=== PATIENT | male | born 1960 | race Caucasian/White ===

== ENCOUNTER 2016-11-20 13:40 | Emergency (ER) | payer BC ==
[2016-11-20 13:58] VITALS: BP 158/82; RESP 18; TEMP 98.6
[2016-11-20] MEDS ORDERED: IPRATROPIUM 0.5 MG/2.5 ML NEBU INHALATION STA (14:27)
[2016-11-20] MEDS ORDERED: ALBUTEROL NEBULIZED 2.5 MG/3 ML INHALATION STA (14:27)
[2016-11-20] MEDS ORDERED: SODIUM CHLORIDE 0.9% 1,000 ML IV STA (14:27)
[2016-11-20] MEDS ORDERED: methylPREDNISolone SOD SUCCI 125 MG/2 ML VIAL IV STA (14:27)
--- NOTE | 2016-11-20 14:29 | ED ---
General Adult HPI - General Chief complaint: Upper Respiratory Infection Stated complaint: Coughing blood Time Seen by Provider: 11/20/16 14:10 Source: patient, RN notes reviewed, old records reviewed Mode of arrival: ambulatory Limitations: no limitations - History of Present Illness Initial comments: This is a 56-year-old male the ER for evaluation. This patient presents today for evaluation of cough and congestion. Patient does sore from asthma, S2 to 3 days of increased cough with mucus production. No fevers. No travel history or chest pain. Patient states that he has been having blood in his mucus that started this morning about [id number]. 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 - Related Data Home Medications Medication Instructions Recorded Confirmed Hydroxychloroquine Sulfate 200 mg PO BID 12/11/15 11/20/16 [Plaquenil] Warfarin [Coumadin] 5 mg PO SUMOTUWESA 12/11/15 11/20/16 Bisoprolol-Hctz 5-6.25 mg [Ziac 1 tab PO DAILY 11/20/16 11/20/16 5-6.25] Enalapril [Vasotec] 10 mg PO BID 11/20/16 11/20/16 Warfarin [Coumadin] 2.5 mg PO THFR 11/20/16 11/20/16 buPROPion XL [Wellbutrin Xl] 450 mg PO DAILY@1200 11/20/16 11/20/16 traZODone HCL [Desyrel] 100 mg PO HS 11/20/16 11/20/16 Allergies Allergy/AdvReac Type Severity Reaction Status Date / Time No Known Allergies Allergy Verified 11/20/16 15:29 Review of Systems ROS Statement: Those systems with pertinent positive or pertinent negative responses have been documented in the HPI. ROS Other: All systems not noted in ROS Statement are negative. Past Medical History Past Medical History: Asthma, Hypertension Additional Past Medical History / Comment(s): lupus History of Any Multi-Drug Resistant Organisms: None Reported Additional Past Surgical History / Comment(s): ganglioin cyst removal Past Psychological History: Anxiety Smoking Status: Never smoker Past Alcohol Use History: None Reported Past Drug Use History: None Reported General Exam Limitations: no limitations General appearance: alert, in no apparent distress, anxious Head exam: Present: atraumatic, normocephalic, normal inspection Eye exam: Present: normal appearance, PERRL, EOMI. Absent: scleral icterus, conjunctival injection, periorbital swelling ENT exam: Present: normal exam, mucous membranes moist Neck exam: Present: normal inspection. Absent: tenderness, meningismus, lymphadenopathy Respiratory exam: Present: normal lung sounds bilaterally, wheezes, decreased breath sounds, prolonged expiratory. Absent: respiratory distress, rales, rhonchi, stridor Cardiovascular Exam: Present: normal rhythm, tachycardia, normal heart sounds. Absent: systolic murmur, diastolic murmur, rubs, gallop, clicks GI/Abdominal exam: Present: soft, normal bowel sounds. Absent: distended, tenderness, guarding, rebound, rigid Extremities exam: Present: normal inspection, full ROM, normal capillary refill. Absent: tenderness, pedal edema, joint swelling, calf tenderness Back exam: Present: normal inspection Neurological exam: Present: alert, oriented X3, CN II-XII intact Psychiatric exam: Present: normal affect, normal mood Skin exam: Present: warm, dry, intact, normal color. Absent: rash Course Vital Signs 11/20/16 13:55 Temperature 98.6 F Pulse Rate 113 H Respiratory 18 Rate Blood Pressure 158/82 O2 Sat by Pulse 96 Oximetry - Reevaluation(s) Reevaluation #1: 11/20/16 15:34 Patient's medical regimen, no significant hemoptysis here in the emergency room Medical Decision Making - Medical Decision Making 56 male here with history of asthma coming with hemoptysis on Coumadin secondary to history of lupus. Patient has no significant bleeding C Reeves is of breath, or click asthma exacerbation, will not take Coumadin today, resume tomorrow. Patient can be discharged - Lab Data Result diagrams: 11/20/16 14:30 11/20/16 14:30 Lab Results 11/20/16 11/20/16 11/20/16 Range/Units 14:30 14:30 14:30 WBC 3.1 L (3.8-10.6) k/uL RBC 5.48 (4.30-5.90) m/uL Hgb 16.1 (13.0-17.5) gm/dL Hct 47.3 (39.0-53.0) % MCV 86.2 (80.0-100.0) fL MCH 29.3 (25.0-35.0) pg MCHC 34.0 (31.0-37.0) g/dL RDW 13.3 (11.5-15.5) % Plt Count 152 (150-450) k/uL Neutrophils % 73 % Lymphocytes % 13 % Monocytes % 8 % Eosinophils % 2 % Basophils % 1 % Neutrophils # 2.3 (1.3-7.7) k/uL Lymphocytes # 0.4 L (1.0-4.8) k/uL Monocytes # 0.3 (0-1.0) k/uL Eosinophils # 0.1 (0-0.7) k/uL Basophils # 0.0 (0-0.2) k/uL PT 25.0 H (9.0-12.0) sec INR 2.6 (<1.1) APTT 32.7 H (22.0-30.0) sec Sodium 140 (137-145) mmol/L Potassium 4.4 (3.5-5.1) mmol/L Chloride 109 H (98-107) mmol/L Carbon Dioxide 25 (22-30) mmol/L Anion Gap 6 mmol/L BUN 19 (9-20) mg/dL Creatinine 0.81 (0.66-1.25) mg/dL Est GFR (MDRD) Af Amer >60 (>60 ml/min/1.73 sqM) Est GFR (MDRD) Non-Af >60 (>60 ml/min/1.73 sqM) Glucose 95 (74-99) mg/dL Calcium 8.9 (8.4-10.2) mg/dL Magnesium 1.9 (1.6-2.3) mg/dL Total Bilirubin 0.5 (0.2-1.3) mg/dL AST 22 (17-59) U/L ALT 25 (21-72) U/L Alkaline Phosphatase 53 (38-126) U/L Total Protein 6.7 (6.3-8.2) g/dL Albumin 3.7 (3.5-5.0) g/dL - Radiology Data Radiology results: report reviewed (Chest x-ray is negative for acute disease), image reviewed Disposition Clinical Impression: Upper respiratory infection, Asthmatic bronchitis, Hemoptysis, Coumadin toxicity Disposition: HOME SELF-CARE Condition: Good Instructions: Asthma (ED), Hemoptysis (ED) Referrals: Mike Wallace DO [Primary Care Provider] - 1-2 days
[2016-11-20 14:54] LABS: INR 2.6 (<1.1); Partial Thromboplastin Time 32.7 sec (22.0-30.0)
[2016-11-20 14:56] LABS: ALT 25 U/L (21-72); AST 22 U/L (17-59); Alkaline Phosphatase 53 U/L (38-126); Anion Gap 6 mmol/L; Blood Urea Nitrogen 19 mg/dL (9-20); Calcium 8.9 mg/dL (8.4-10.2); Carbon Dioxide 25 mmol/L (22-30); Chloride 109 mmol/L (98-107); Glucose 95 mg/dL (74-99); Magnesium 1.9 mg/dL (1.6-2.3); Non-African American GFR(MDRD) >60 (>60 ml/min/1.73 sqM); Potassium 4.4 mmol/L (3.5-5.1); Sodium 140 mmol/L (137-145); Total Bilirubin 0.5 mg/dL (0.2-1.3); Total Protein 6.7 g/dL (6.3-8.2)
[2016-11-20 15:13] LABS: Basophils % (A) 1 %; CH 29.6; CHCM 34.6; Eosinophils # (A) 0.1 k/uL (0-0.7); Eosinophils % (A) 2 %; HCT 47.3 % (39.0-53.0); HDW 2.97; HGB 16.1 gm/dL (13.0-17.5); Luc # (Auto) 0.07; Luc % (Auto) 2; Lymphocytes # (A) 0.4 k/uL (1.0-4.8); Lymphocytes % (A) 13 %; MCH 29.3 pg (25.0-35.0); MCV 86.2 fL (80.0-100.0); Mean Platelet Volume 7.3; Monocytes # (A) 0.3 k/uL (0-1.0); Monocytes % (A) 8 %; Neutrophils # (A) 2.3 k/uL (1.3-7.7); Neutrophils % (A) 73 %; RBC 5.48 m/uL (4.30-5.90); RDW 13.3 % (11.5-15.5); WBC 3.1 k/uL (3.8-10.6); WBC (Perox) 3.04
--- NOTE | 2016-11-20 15:17 | XR ---
EXAMINATION TYPE: XR chest 2V DATE OF EXAM: 11/20/2016 2:58 PM COMPARISON: NONE HISTORY: Cough TECHNIQUE: Frontal and lateral views of the chest are obtained. FINDINGS: Heart and mediastinum are normal. Lungs are clear. There are no hilar masses. Diaphragm is normal. Bony thorax appears intact. IMPRESSION: Normal chest
[2016-11-20 16:13] VITALS: PULSE 100
== END 2016-11-20 16:25 | disposition home or self-care (01) ==
LOC: EC 13:40
DX: J06.9 Acute upper respiratory infection, unspecified (principal); J45.909 Unspecified asthma, uncomplicated; R04.2 Hemoptysis; T45.515A Adverse effect of anticoagulants, initial encounter; I10 Essential (primary) hypertension; Z79.01 Long term (current) use of anticoagulants; Z79.899 Other long term (current) drug therapy
CPT/HCPCS: 99284; 96374; 96361; 36415; 94644; 80053; 83735; 85025; 85610; 85730; 71020; J2930

== ENCOUNTER 2017-03-21 16:36 | Emergency (ER) | payer BC, OTHER ==
[2017-03-21 16:51] VITALS: RESP 18; TEMP 98.5
--- NOTE | 2017-03-21 17:59 | ED ---
Wound/Laceration HPI - General Chief Complaint: Wound/Laceration Stated Complaint: Laceration-[facility] Time Seen by Provider: 03/21/17 17:26 Source: patient Mode of arrival: ambulatory Limitations: no limitations - History of Present Illness Initial Comments: 57-year-old male patient presented to emergency department today for evaluation of a laceration to the palmar aspect of the right first finger. Patient states that he was cutting a plastic barrel at work with a knife when he slipped and denies that his fingers. Patient has 2 superficial lacerations to the palmar aspect of the right third and fourth fingers, but the worst is on his right first finger. He states he does take Coumadin and is having difficulty getting the bleeding to stop. He states he is having some tingling to the distal tip of the finger. He denies any difficulty with range of motion or any bony tenderness. Denies any other injuries. Patient denies any headache, neck pain , back pain, chest pain, shortness of breath, dizziness, weakness, abdominal pain, nausea, vomiting, or difficulties with bowel movements or urination. - Related Data Home Medications Medication Instructions Recorded Confirmed Hydroxychloroquine Sulfate 200 mg PO BID 12/11/15 11/20/16 [Plaquenil] Warfarin [Coumadin] 5 mg PO SUMOTUWESA 12/11/15 11/20/16 Albuterol Inhaler [Ventolin Hfa 1 - 2 puff INHALATION RT-Q6H PRN 11/20/16 Inhaler] Bisoprolol-Hctz 5-6.25 mg [Ziac 1 tab PO DAILY 11/20/16 11/20/16 5-6.25] Enalapril [Vasotec] 10 mg PO BID 11/20/16 11/20/16 Warfarin [Coumadin] 2.5 mg PO THFR 11/20/16 11/20/16 buPROPion XL [Wellbutrin Xl] 450 mg PO DAILY@1200 11/20/16 11/20/16 traZODone HCL [Desyrel] 100 mg PO HS 11/20/16 11/20/16 Previous Rx's Medication Instructions Recorded Albuterol Sulfate [Proair Hfa] 1 - 2 puff INHALATION Q4H PRN #1 11/20/16 inhaler Azithromycin [Zithromax Z-pack] 0 mg PO DIRECTED #1 pack 11/20/16 predniSONE 50 mg PO DAILY #5 tab 11/20/16 Allergies Allergy/AdvReac Type Severity Reaction Status Date / Time No Known Allergies Allergy Verified 03/21/17 16:48 Review of Systems ROS Statement: Those systems with pertinent positive or pertinent negative responses have been documented in the HPI. ROS Other: All systems not noted in ROS Statement are negative. Past Medical History Past Medical History: Asthma, Hypertension, Pulmonary Embolus (PE) Additional Past Medical History / Comment(s): lupus History of Any Multi-Drug Resistant Organisms: None Reported Additional Past Surgical History / Comment(s): ganglioin cyst removal Past Psychological History: Anxiety Smoking Status: Never smoker Past Alcohol Use History: None Reported Past Drug Use History: None Reported General Exam Limitations: no limitations General appearance: alert, in no apparent distress, other (Well-developed, well- nourished adult male patient in no acute distress. Vital signs upon presentation were temperature 98.5F, pulse 86, respirations 18, blood pressure 149/84, pulse ox 98% on room air.) Respiratory exam: Present: normal lung sounds bilaterally. Absent: respiratory distress, wheezes, rales, rhonchi, stridor Cardiovascular Exam: Present: regular rate, normal rhythm, normal heart sounds. Absent: systolic murmur, diastolic murmur, rubs, gallop, clicks Extremities exam: Present: full ROM, normal capillary refill, other (2 cm laceration to the palmar aspect of the right first finger over the PIP joint. 1 cm superficial lacerations to the palmar aspect of the right third and fourth finger. Skin is pink, warm, and dry. Strength in all fingers is good. Radial pulses are strong and equal bilaterally. Cap refills less than 3 seconds.). Absent: tenderness, pedal edema, joint swelling, calf tenderness Neurological exam: Present: alert, oriented X3, CN II-XII intact Psychiatric exam: Present: normal affect, normal mood Skin exam: Present: warm, dry, intact, normal color. Absent: rash Course Vital Signs 03/21/17 03/21/17 16:48 18:15 Temperature 98.5 F Pulse Rate 86 89 Respiratory 18 18 Rate Blood Pressure 149/84 133/78 O2 Sat by Pulse 98 98 Oximetry Procedures - Laceration Laceration #1 Consent Obtained: verbal consent Time Out Performed: Yes Indication: laceration Site: hand (Palmar aspect of the first finger) Size (cm): 3 Description: linear Depth: simple, single layer Anesthetic Used: lidocaine 1% Anesthesia Technique: local infiltration Amount (mls): 3 Pre-repair: irrigated extensively Type of Sutures: nylon Size of Sutures: 5-0 Number of Sutures: 5 Technique: simple, interrupted Patient Tolerated Procedure: well, no complications Medical Decision Making - Medical Decision Making 57-year-old male patient presented for evaluation of laceration to his right first finger. Laceration was repaired after cleaning. Patient did have some tingling to the tip of his finger, color and strength are intact. He is instructed regarding signs or symptoms of infection. He is instructed to return in 7 days for suture removal. He is instructed to follow-up with his primary care physician for recheck in 1-2 days. Patient states he did receive a tetanus vaccine one year ago. He is instructed to follow-up with orthopedics for any further evaluation of the numbness. He is instructed to return here immediately for any new, worsening, or concerning symptoms. Patient verbalizes understanding and agrees with this plan. Disposition Clinical Impression: Finger laceration Disposition: HOME SELF-CARE Condition: Good Instructions: Care For Your Stitches (ED), Laceration (ED) Additional Instructions: Keep wound clean and dry. Wash gently twice daily with warm water and antibacterial soap. Monitor for signs or symptoms of infection including redness, swelling, drainage of pus, fever, or chills. Follow up with orthopedics for recheck if her symptoms don't improve over the next week. Return here immediately for any new, worsening, or concerning symptoms. Referrals: Mike Wallace DO [Primary Care Provider] - 1-2 days Rob Tidwell MD [STAFF PHYSICIAN] - 1-2 days Time of Disposition: 17:59
[2017-03-21 18:16] VITALS: BP 133/78; PULSE 89
== END 2017-03-21 18:16 | disposition home or self-care (01) ==
LOC: EC 16:36
DX: S61.011A Laceration without foreign body of right thumb without damage to nail, initial encounter (principal); S61.312A Laceration without foreign body of right middle finger with damage to nail, initial encounter; S61.214A Laceration without foreign body of right ring finger without damage to nail, initial encounter; I10 Essential (primary) hypertension; F41.9 Anxiety disorder, unspecified; Z86.711 Personal history of pulmonary embolism; Z79.01 Long term (current) use of anticoagulants; Z79.899 Other long term (current) drug therapy; W26.0XXA Contact with knife, initial encounter; Y99.0 Civilian activity done for income or pay
CPT/HCPCS: 12002; 99282

== ENCOUNTER 2021-06-03 13:29 | Emergency (ER) | payer BC ==
[2021-06-03 14:15] VITALS: BP 164/89; PULSE 90; RESP 20; TEMP 98.7
--- NOTE | 2021-06-03 17:21 | ED ---
General Adult HPI - General Chief complaint: ENT Stated complaint: Wants COVID test,Nose Bleed Time Seen by Provider: 06/03/21 17:07 Source: patient Mode of arrival: ambulatory Limitations: no limitations - History of Present Illness Initial comments: Dictation was produced using [employer] dictation software. please excuse any grammatical, word or spelling errors. Chief Complaint: 61-year-old male presents with nosebleed History of Present Illness: Patient is 61-year-old male who presents emergency department. Patient states that earlier today and last night he had some episodes of epistaxis. Patient takes Xarelto for DVT and PEs. Patient states he has a blood clotting disorder. Patient denies any active bleeding at this time. He wants to be tested for covid 19 as well. Patient states the bleeding stopped on its own. The ROS documented in this emergency department record has been reviewed and confirmed by me. Those systems with pertinent positive or negative responses have been documented in the HPI. All other systems are other negative and/or noncontributory. PHYSICAL EXAM: General Impression: Alert and oriented x3, not in acute distress HEENT: Normocephalic atraumatic, extra-ocular movements intact, pupils equal and reactive to light bilaterally, mucous membranes moist. Nose: No bleeding, there is appear to be some blood to the left septum Cardiovascular: Heart regular rate and rhythm Chest: Able to complete full sentences, no retractions, no tachypnea Musculoskeletal: Pulses present and equal in all extremities, no peripheral edema Motor: no focal deficits noted Neurological: CN II-XII grossly intact, no focal motor or sensory deficits noted Skin: Intact with no visualized rashes Psych: Normal affect and mood ED course: 61-year-old male presents to the emergency department for epistaxis vital signs upon arrival are within acceptable limits. No active bleeding at this time. Patient counseled on epistaxis precautions. He is given prescription for Afrin spray, [place] spray and sterile jelly. Patient requested a work note. Work note provided. - Related Data Home Medications Medication Instructions Recorded Confirmed Hydroxychloroquine Sulfate 200 mg PO BID 12/11/15 11/20/16 [Plaquenil] Warfarin [Coumadin] 5 mg PO SUMOTUWESA 12/11/15 11/20/16 Albuterol Inhaler (Mhu) [Ventolin 1 - 2 puff INHALATION RT-Q6H PRN 05/29/17 05/29/17 Hfa Inhaler] Bisoprolol-Hctz 5-6.25 mg [Ziac 1 tab PO DAILY 11/20/16 11/20/16 5-6.25] Enalapril [Vasotec] 10 mg PO BID 11/20/16 11/20/16 Warfarin [Coumadin] 2.5 mg PO THFR 11/20/16 11/20/16 buPROPion XL [Wellbutrin Xl] 450 mg PO DAILY@1200 11/20/16 11/20/16 traZODone HCL [Desyrel] 100 mg PO HS 11/20/16 11/20/16 Previous Rx's Medication Instructions Recorded Albuterol Sulfate [Proair Hfa] 1 - 2 puff INHALATION Q4H PRN #1 11/20/16 inhaler Azithromycin [Zithromax Z-pack (6 0 mg PO DIRECTED #1 pack 11/20/16 tabs)] predniSONE 50 mg PO DAILY #5 tab 11/20/16 Oxymetazoline 0.05% Nasl [place] 2 spray EA NOSTRIL BID PRN #15 ml 06/03/21 [Afrin 0.05% Nasal [place]] Sodium Chloride [Saline Nasal 1 spray EA NOSTRIL TID #1 dispenser 06/03/21 [place]] Allergies Allergy/AdvReac Type Severity Reaction Status Date / Time No Known Allergies Allergy Verified 06/03/21 14:12 Review of Systems ROS Statement: Those systems with pertinent positive or pertinent negative responses have been documented in the HPI. ROS Other: All systems not noted in ROS Statement are negative. Past Medical History Past Medical History: Asthma, Hypertension, Pulmonary Embolus (PE) Additional Past Medical History / Comment(s): lupus History of Any Multi-Drug Resistant Organisms: None Reported Past Surgical History: No Surgical Hx Reported Additional Past Surgical History / Comment(s): ganglioin cyst removal Past Psychological History: Anxiety Smoking Status: Former smoker Past Alcohol Use History: None Reported Past Drug Use History: None Reported General Exam Limitations: no limitations Course Vital Signs 06/03/21 14:12 Temperature 98.7 F Pulse Rate 90 Respiratory 20 Rate Blood Pressure 164/89 O2 Sat by Pulse 97 Oximetry Medical Decision Making - Lab Data Lab Results 06/03/21 Range/Units 14:17 Coronavirus (PCR) Not Detected (Not Detectd) Disposition Clinical Impression: Epistaxis Disposition: HOME SELF-CARE Condition: Good Instructions (If sedation given, give patient instructions): Nosebleed (ED) Additional Instructions: 1. keep naris moist with normal saline nasal spray and sterile jelly 2. use afrin as needed when your nose starts to bleed, pinch bridge of nose and look down 3. increase humidity in your household with humidifier 4. stay hydrated 5. seek medical attention if bleeding is persistent Prescriptions: Oxymetazoline 0.05% Nasl [place] [Afrin 0.05% Nasal [place]] 2 spray EA NOSTRIL BID PRN #15 ml PRN Reason: nosebleed Sodium Chloride [Saline Nasal [place]] 1 spray EA NOSTRIL TID #1 dispenser Is patient prescribed a controlled substance at d/c from ED?: No Referrals: Mike Wallace DO [Primary Care Provider] - 1-2 days
== END 2021-06-03 17:45 | disposition home or self-care (01) ==
LOC: EC 13:29
DX: R04.0 Epistaxis (principal); Z20.822 Contact with and (suspected) exposure to COVID-19; I10 Essential (primary) hypertension; J45.909 Unspecified asthma, uncomplicated; F41.9 Anxiety disorder, unspecified; Z79.01 Long term (current) use of anticoagulants; Z79.51 Long term (current) use of inhaled steroids; Z79.899 Other long term (current) drug therapy; Z87.891 Personal history of nicotine dependence; Z86.711 Personal history of pulmonary embolism
CPT/HCPCS: 87635; 99283